=== PATIENT | female | born 1970 | race Caucasian/White ===

== ENCOUNTER 2016-06-30 19:03 | Emergency (ER) | payer BC, OTHER ==
[2016-06-30 19:24] VITALS: BP 111/60; PULSE 89; TEMP 98.8; BMI 27.6
--- NOTE | 2016-06-30 19:52 | PDOC ---
History of Present Illness - General Chief Complaint: Respiratory Stated Complaint: CHEST CONGESTION Time Seen by Provider: 06/30/16 19:37 History Source: Patient Exam Limitations: No Limitations - History of Present Illness Initial Comments: CHIEF COMPLAINT: 45 y/o febrile female with no significant PMH c/o cough and not feeling well for the past 5 day. HISTORY OF PRESENT ILLNESS: 4 days ago she went to her doctor and was started on a Zpack and mucinex for bronchitis. She states her last dose is tomorrow and she feels no better. She states when she coughs she has pain in the front middle of her chest. She denies fever but admits to chills. She denies n/v/d, SOB, abd pain, back pain. Vital signs on arrival are notable for O2 sat of 97% on RA REVIEW OF SYSTEMS: GENERAL/CONSTITUTIONAL: No fever. + chills. + weakness. No weight change. HEAD, EYES, EARS, NOSE AND THROAT: No change in vision. No ear pain or discharge. No sore throat. CARDIOVASCULAR: +post tussive chest pain. No shortness of breath. RESPIRATORY: +non productive cough. No wheezing, or hemoptysis. GASTROINTESTINAL: No abd pain, nausea, vomiting, diarrhea. GENITOURINARY: No dysuria, frequency, or change in urination. MUSCULOSKELETAL: No joint or muscle swelling or pain. No neck or back pain. SKIN: No rash or easy bruising. NEUROLOGIC: No headache, vertigo, loss of consciousness, or loss of sensation. PHYSICAL EXAM: GENERAL: The patient is awake, alert, and fully oriented, in no acute distress. She has a very dry cough. She is non toxic but ill appearing. HEAD: Normal with no signs of trauma. ENT: Pupils equal, round and reactive to light, extraocular movements intact, sclera anicteric, conjunctiva clear. Neck supple. LUNGS: Clear to auscultation bilaterally. Normal excursion. No respiratory distress or use of accessory muscles. CHEST WALL: Reproducible chest pain with palpation of anterior distal sternum. CV: RRR, S1/S2, no MRG. Cap refill < 2 sec. ABDOMEN: Soft, non-distended, non-tender even to deep palpation, no hepatomegaly or splenomegaly, no masses. EXTREMITIES: Normal range of motion, no edema. NEUROLOGICAL: Normal speech, normal gait. CN II-XII grossly intact. PSYCH: Normal mood, normal affect. SKIN: Warm, dry, normal turgor, no rashes or lesions noted. Past History - Past Medical History Allergies/Adverse Reactions: Allergies Allergy/AdvReac Type Severity Reaction Status Date / Time No Known Allergies Allergy Verified 06/30/16 19:21 Home Medications: Ambulatory Orders Albuterol Sulfate Inhaler - [Ventolin HFA Inhaler -] 1 - 2 inh PO Q4H #1 inhaler 06/30/16 Guaifenesin AC [Robitussin AC] 5 ml PO TID #1 bottle MDD 15ml 06/30/16 Prednisone [Deltasone -] 40 mg PO DAILY #8 tablet 06/30/16 Other medical history: denies - Immunization History Immunization Up to Date: Yes (no flu shot) - Psycho/Social/Smoking Cessation Hx Suicidal Ideation: No Smoking History: Never smoked Have you smoked in the past 12 months: No Information on smoking cessation initiated: No Hx Alcohol Use: No Drug/Substance Use Hx: No Substance Use Type: None *Physical Exam - Vital Signs Last Vital Signs Temp Pulse Resp BP Pulse Ox 98.8 F 89 18 111/60 97 06/30/16 19:22 06/30/16 19:22 06/30/16 19:22 06/30/16 19:22 06/30/16 19:22 ED Treatment Course - RADIOLOGY Radiology Studies Ordered: Category Date Time Status CHEST PA & LAT [RAD] Stat Radiology 06/30/16 19:47 Ordered Medical Decision Making - Medical Decision Making A/P: 45 y/o female with worsened symptom after 4 days of treatment for bronchitis. Plan is as follows: 1. hcg 2. CXR hcg - negative CXR IMPRESSION: No interval change from prior of 1999. No acute lung disease Ordered PO prednisone and duoneb Will give Robitussin AC The patient states she feels better after duoneb Will d/c to home with rx for prednisone, albuterol inhaler and robitussin AC Informed her robitussin will make her drowsy. Suggested she f/u with her doctor and return to the ER with any worsening or concerning symptoms The patient verbalizes understanding of all instructions, has no further questions and is awaiting discharge. *DC/Admit/Observation/Transfer Diagnosis at time of Disposition: Bronchitis, Cough - Discharge Dispostion Disposition: HOME Condition at time of disposition: Improved - Prescriptions Prescriptions: Prednisone [Deltasone -] 40 mg PO DAILY #8 tablet Guaifenesin AC [Robitussin AC] 5 ml PO TID #1 bottle MDD 15ml Albuterol Sulfate Inhaler - [Ventolin HFA Inhaler -] 1 - 2 inh PO Q4H #1 inhaler - Referrals Referrals: Ethan Rendon MD [Primary Care Provider] - - Patient Instructions Printed Discharge Instructions: DI for Acute Bronchitis Additional Instructions: Discharge Instructions: -Take medications as prescribed -Robitussin with codeine may cause drowsiness -Follow up with your PCP within 1 week -Return to the ER with any worsening or concerning symptoms - Post Discharge Activity Work/School Note: Back to Work
[2016-06-30] MEDS ORDERED: ALBUTEROL SO4 2.5/IPRATROPIUM 0.5 INH SOL 3 ML VIAL.NEB. NEB ONE ×2 (20:41→20:51)
[2016-06-30] MEDS ORDERED: predniSONE 20 MG TABLET (UD) PO ONE (20:41)
[2016-06-30] MEDS ORDERED: predniSONE 20 MG TABLET (UD) ONE (20:50)
[2016-06-30] MEDS ORDERED: guaiFENesin/CODEINE 10 ML UNIT-DOSE CUPS PO ONE (21:15)
[2016-06-30] MEDS ORDERED: guaiFENesin/CODEINE 10 ML UNIT-DOSE CUPS ONE (21:22)
== END 2016-06-30 21:27 | disposition home or self-care (01) ==
LOC: JERFT 19:03
PROC: 3E0F7GC Introduction of Other Therapeutic Substance into Respiratory Tract, Via Natural or Artificial Opening (ICD-10-PCS; principal; 2016-06-30)
DX: J40 Bronchitis, not specified as acute or chronic (principal)
CPT/HCPCS: 71020-TC; 84703; 99281-25

== ENCOUNTER 2023-08-11 13:21 | Emergency (ER) | payer BC, OTHER ==
[2023-08-11 13:30] VITALS: BP 105/72; PULSE 73; RESP 18; TEMP 97.5; BMI 24.5
[2023-08-11] MEDS ORDERED: METOCLOPRAMIDE HCL INJECTION 10 MG/2 ML VIAL ONE (14:20)
[2023-08-11] MEDS ORDERED: ACETAMINOPHEN INJECTION 100 ML IVPB ONE (14:20)
[2023-08-11] MEDS: ACETAMINOPHEN 1000 MG/100 ML BAG IVPB ONE (15:03)
[2023-08-11] MEDS: SODIUM CHLORIDE 1,000 ML IV STA (15:03)
[2023-08-11] MEDS: METOCLOPRAMIDE HCL INJECTION 10 MG/2 ML VIAL IVPUSH ONE (15:04)
[2023-08-11 15:06] LABS: BASO % 0.6 % (0-2.0); EOS % 1.3 % (0-4.5); HEMATOCRIT 42.7 % (32.4-45.2); HEMOGLOBIN 14.3 GM/dL (10.7-15.3); LYMPH % 38.7 % (8-40); MCH 28.7 pg (25.7-33.7); MCHC 33.5 g/dl (32.0-36.0); MEAN CELL VOLUME 85.8 fl (80-96); MEAN PLT VOLUME 8.4 fl (7.5-11.1); MONO % 6.1 % (3.8-10.2); NEUT % 53.3 % (42.8-82.8); PLATELET COUNT 252 10^3/uL (134-434); RBC 4.97 M/mm3 (3.60-5.2); RDW 13.2 % (11.6-15.6); WHITE BLOOD COUNT 7.3 K/mm3 (4.0-10.0)
[2023-08-11 15:28] LABS: CALCIUM 9.2 mg/dL (8.5-10.1)
[2023-08-11 15:29] LABS: ALBUMIN 3.8 g/dl (3.4-5.0); BLOOD UREA NITROGEN 14.9 mg/dL (7-18); MAGNESIUM 2.2 mg/dL (1.8-2.4)
[2023-08-11 15:32] LABS: CREATININE 0.8 mg/dL (0.55-1.3)
[2023-08-11 15:33] LABS: BILIRUBIN,TOTAL 0.4 mg/dL (0.2-1)
[2023-08-11] MEDS ORDERED: DEXAMETHASONE SOD PHOSPHATE 10 MG/1 ML VIAL ONE (16:17)
[2023-08-11] MEDS: DEXAMETHASONE SOD PHOSPHATE 10 MG/1 ML VIAL IVPUSH ONE (16:20)
== END 2023-08-11 16:53 | disposition home or self-care (01) ==
LOC: JER 13:21
PROC: 3E033NZ Introduction of Analgesics, Hypnotics, Sedatives into Peripheral Vein, Percutaneous Approach (ICD-10-PCS; principal; 2023-08-11)
PROC: 3E033GC Introduction of Other Therapeutic Substance into Peripheral Vein, Percutaneous Approach (ICD-10-PCS; 2023-08-11)
PROC: 3E033GC Introduction of Other Therapeutic Substance into Peripheral Vein, Percutaneous Approach (ICD-10-PCS; 2023-08-11)
PROC: 3E0337Z Introduction of Electrolytic and Water Balance Substance into Peripheral Vein, Percutaneous Approach (ICD-10-PCS; 2023-08-11)
DX: G43.909 Migraine, unspecified, not intractable, without status migrainosus (principal); R20.0 Anesthesia of skin; R47.9 Unspecified speech disturbances; Z20.822 Contact with and (suspected) exposure to COVID-19
CPT/HCPCS: 0241U-QW; 36415; 70450-TC; 80053; 83735; 85025; 93005; 93010; 99285-25; J0131; J1100

== ENCOUNTER 2023-11-25 17:54 | Emergency (ER) | payer BC, OTHER ==
[2023-11-25 18:06] VITALS: BP 122/68; PULSE 72; RESP 19; TEMP 97.8; BMI 24.7
[2023-11-25] MEDS ORDERED: METOCLOPRAMIDE HCL INJECTION 10 MG/2 ML VIAL ONE ×2 (18:46→19:30)
[2023-11-25] MEDS ORDERED: KETOROLAC TROMETHAMINE 30 MG/1 ML VIAL ONE (18:46)
[2023-11-25] MEDS ORDERED: MAGNESIUM SULF 50% (8.12 MEQ/2 ML-1 GM VIAL) ONE (18:46)
[2023-11-25] MEDS: KETOROLAC TROMETHAMINE 30 MG/1 ML VIAL IVPB ONE (19:21)
[2023-11-25 19:25] LABS: BASO % 0.4 % (0-2.0); EOS % 1.5 % (0-4.5); HEMATOCRIT 42.6 % (32.4-45.2); HEMOGLOBIN 14.2 GM/dL (10.7-15.3); LYMPH % 43.5 % (8-40); MCH 28.8 pg (25.7-33.7); MCHC 33.2 g/dl (32.0-36.0); MEAN CELL VOLUME 86.6 fl (80-96); MEAN PLT VOLUME 9.6 fl (7.5-11.1); NEUT % 47.6 % (42.8-82.8); PLATELET COUNT 277 10^3/uL (134-434); RBC 4.92 M/mm3 (3.60-5.2); RDW 14.5 % (11.6-15.6); WHITE BLOOD COUNT 7.1 K/mm3 (4.0-10.0)
[2023-11-25] MEDS: SODIUM CHLORIDE 0.9% 500 ML INFUS.BAG IV ONE (19:34)
[2023-11-25] MEDS: METOCLOPRAMIDE HCL INJECTION 10 MG/2 ML VIAL IVPUSH ONE (19:34)
[2023-11-25] MEDS ORDERED: MAGNESIUM 1GM/D5W - 1 GM/100 ML IVPB IVPB ONE (19:48)
[2023-11-25] MEDS: MAGNESIUM 1GM/D5W - 1 GM/100 ML IVPB IVPB ONE (20:04)
[2023-11-25 20:33] LABS: POTASSIUM 5.5 mmol/L (3.5-5.1)
[2023-11-25 20:35] LABS: BLOOD UREA NITROGEN 16.5 mg/dL (7-18); CALCIUM 9.1 mg/dL (8.5-10.1); MAGNESIUM 2.3 mg/dL (1.8-2.4)
[2023-11-25 20:40] LABS: BILIRUBIN,TOTAL 0.5 mg/dL (0.2-1); TOT PROT 7.6 g/dl (6.4-8.2)
[2023-11-25] MEDS ORDERED: ACETAMINOPHEN 500 MG TABLET (FP) ONE (20:59)
[2023-11-25] MEDS: ACETAMINOPHEN 500 MG TABLET (FP) PO ONE (21:02)
== END 2023-11-25 21:10 | disposition home or self-care (01) ==
LOC: JER 17:54
PROC: 3E033GC Introduction of Other Therapeutic Substance into Peripheral Vein, Percutaneous Approach (ICD-10-PCS; principal; 2023-11-25)
PROC: 3E033GC Introduction of Other Therapeutic Substance into Peripheral Vein, Percutaneous Approach (ICD-10-PCS; 2023-11-25)
PROC: 3E0333Z Introduction of Anti-inflammatory into Peripheral Vein, Percutaneous Approach (ICD-10-PCS; 2023-11-25)
DX: G43.909 Migraine, unspecified, not intractable, without status migrainosus (principal)
CPT/HCPCS: 36415; 80053; 83735; 85025; 99284-25

== ENCOUNTER 2023-12-17 18:52 | Observation (INO) | payer BC, OTHER ==
[2023-12-17 19:09] VITALS: BMI 24.5
[2023-12-17 20:26] LABS: HCG,QUALITATIVE URINE Negative
[2023-12-18 01:50] LABS: BASO % 0.2 % (0-2.0); EOS % 0.6 % (0-4.5); HEMATOCRIT 43.1 % (32.4-45.2); HEMOGLOBIN 14.6 GM/dL (10.7-15.3); LYMPH % 18.7 % (8-40); MCH 28.9 pg (25.7-33.7); MEAN CELL VOLUME 85.1 fl (80-96); MONO % 4.1 % (3.8-10.2); NEUT % 76.4 % (42.8-82.8); PLATELET COUNT 254 10^3/uL (134-434); RBC 5.06 M/mm3 (3.60-5.2)
[2023-12-18 02:12] LABS: INR 0.94 (0.83-1.09); PROTHROMBIN TIME (PATIENT) 10.6 SEC (9.7-13.0)
[2023-12-18] MEDS ORDERED: ACETAMINOPHEN INJECTION 100 ML IVPB ONE (02:19)
[2023-12-18] MEDS: ACETAMINOPHEN 1000 MG/100 ML BAG IVPB ONE ×2 (02:24→12:55)
[2023-12-18 02:46] LABS: ALBUMIN 3.9 g/dl (3.4-5.0); BILIRUBIN,TOTAL 0.9 mg/dL (0.2-1); BLOOD UREA NITROGEN 11.1 mg/dL (7-18); CALCIUM 9.5 mg/dL (8.5-10.1); CREATININE 0.7 mg/dL (0.55-1.3); POTASSIUM 4.3 mmol/L (3.5-5.1); TOT PROT 7.2 g/dl (6.4-8.2)
[2023-12-18 09:04] LABS: CALCIUM 9.4 mg/dl (8.5-10.1); CREATININE 0.7 mg/dl (0.6-1.3); POTASSIUM 4.1 mmol/L (3.5-5.1)
[2023-12-18 10:12] VITALS: RESP 18
[2023-12-18 11:28] LABS: HEMATOCRIT 39.9 % (32.4-45.2); HEMOGLOBIN 13.6 GM/dL (10.7-15.3); MEAN CELL VOLUME 85.3 fl (80-96); PLATELET COUNT 240 10^3/uL (134-434); RBC 4.67 M/mm3 (3.60-5.2); RDW 14.4 % (11.6-15.6); WHITE BLOOD COUNT 7.2 K/mm3 (4.0-10.0)
[2023-12-18] MEDS ORDERED: ACETAMINOPHEN 325 MG TABLET (FP) PO PRN ×2 (12:28→13:05)
[2023-12-18 12:37] LABS: ANISOCYTOSIS 2+; MACROCYTOSIS 0
[2023-12-18] MEDS ORDERED: ACETAMINOPHEN 1000 MG/100 ML BAG IVPB PRN (13:05)
[2023-12-18] MEDS: ENOXAPARIN NA (PORCINE) 30 MG/0.3 ML DISP.SYRIN SQ SCH (13:42)
[2023-12-18] MEDS ORDERED: MINERAL OIL/PET HY-PHL TOPICAL OINTMENT 454 GM JAR TP PRN (14:12)
[2023-12-18 14:24] VITALS: BP 119/70; PULSE 74; TEMP 98.1
== END 2023-12-18 17:56 | disposition home or self-care (01) ==
LOC: FER 18:52 → FM/S 12-18 04:01
PROVIDERS: ADMIT Internal Medicine; ATTEND Nurse Practitioner Family
PROC: 0T9B70Z Drainage of Bladder with Drainage Device, Via Natural or Artificial Opening (ICD-10-PCS; principal; 2023-12-18)
PROC: 3E033GC Introduction of Other Therapeutic Substance into Peripheral Vein, Percutaneous Approach (ICD-10-PCS; 2023-12-18)
DX: R33.9 Retention of urine, unspecified (principal); D25.9 Leiomyoma of uterus, unspecified; N20.0 Calculus of kidney; R10.30 Lower abdominal pain, unspecified
CPT/HCPCS: 36415; 51702; 74176-TC; 76856-TC; 80048; 80053; 81003; 84703; 85025; 85027; 85610; 87086; 96374; 99285-25; G0378; J0131